=== PATIENT | female | born 1965 | race American Indian/Alaskan Native ===

== ENCOUNTER 2017-10-31 10:26 | Emergency (ER) | payer OTHER ==
[2017-10-31 10:33] VITALS: BMI 29.5
[2017-10-31 10:35] VITALS: BP 151/62; PULSE 60; RESP 20; TEMP 98.2; O2SAT 97
[2017-10-31] MEDS ORDERED: Oxycodone/Acetaminophen 5/325 mg Tab PO STA (11:21)
[2017-10-31] MEDS ORDERED: Oxycodone/Acetaminophen 5/325 mg Tab ONE (11:23)
--- NOTE | 2017-10-31 11:25 | ED PDOC ---
Upper Extremity Pain/Injury Time Seen by Provider: 10/31/17 10:36 Chief Complaint (Nursing): Finger,Hand,&Wrist History Per: Patient History/Exam Limitations: no limitations Onset/Duration Of Symptoms: Sudden Onset Current Symptoms Are (Timing): Still Present Severity: Moderate Hands/Wrist (Pic): 1 - Tenderness, Swelling, Pain Worse W/Movement Additional History Per: Patient Additional Complaint(s): Patient complaints of right hand pain s/p fall that occurred yesterday. Reports pain has since increased, prompting her visit. Swelling noted to right hand. Denies any numbness or tingling. Able to move fingers. No medication taken [employer]. Past Medical History Reviewed: Historical Data, Nursing Documentation, Vital Signs Vital Signs: Last Vital Signs Temp 98.2 F 10/31/17 10:34 Pulse 60 10/31/17 10:34 Resp 20 10/31/17 10:34 BP 151/62 H 10/31/17 10:34 Pulse Ox 97 10/31/17 10:34 - Medical History PMH: CHF, HTN - Family History Family History: States: Unknown Family Hx - Living Arrangements Living Arrangements: With Family - Social History Current smoker - smoking cessation education provided: No Alcohol: None - Home Medications Home Medications: Ambulatory Orders Medication Instructions Recorded LORazepam [Ativan] 1 mg PO Q12 PRN #2 tab 09/17/15 Ibuprofen [Motrin Tab] 600 mg PO QID PRN #60 tab 10/31/17 - Allergies Allergies/Adverse Reactions: Allergies Allergy/AdvReac Type Severity Reaction Status Date / Time No Known Allergies Allergy Verified 09/17/15 18:32 Review of Systems ROS Statement: Except As Marked, All Systems Reviewed And Found Negative Constitutional: Negative for: Fever, Chills Cardiovascular: Negative for: Chest Pain, Palpitations Respiratory: Negative for: Cough, Shortness of Breath Gastrointestinal: Negative for: Nausea, Vomiting, Abdominal Pain Musculoskeletal: Positive for: Hand Pain (right). Negative for: Leg Pain, Foot Pain Physical Exam - Reviewed Nursing Documentation Reviewed: Yes Vital Signs Reviewed: Yes - Physical Exam Appears: Positive for: Well Head Exam: Positive for: NORMAL INSPECTION, NORMOCEPHALIC Eye Exam: Positive for: Normal appearance, EOMI, PERRL Neck: Positive for: Normal, Painless ROM, Supple Cardiovascular/Chest: Positive for: Regular Rate, Rhythm, Chest Non Tender. Negative for: Edema, Gallop, Murmur, Bradycardia, Tachycardia Respiratory: Positive for: Normal Breath Sounds. Negative for: Decreased Breath Sounds, Accessory Muscle Use, Crackles, Rales, Rhonchi, Stridor, Wheezing , Respiratory Distress Pulses-Radial (L): 2+ Pulses-Radial (R): 2+ Gastrointestinal/Abdominal: Positive for: Normal Exam, Bowel Sounds, Soft. Negative for: Tenderness Back: Positive for: Normal Inspection. Negative for: L CVA Tenderness, R CVA Tenderness Extremity: Positive for: Normal ROM, Tenderness (tenderness and swelling at right mcp, finger nvi, nml rom of wrist, no snuff box tenderness). 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 Negative for: Motor/Sensory Deficits - ECG O2 Sat by Pulse Oximetry: 97 Pulse Ox Interpretation: Normal - Other Rad No standard instances X-Ray: Interpreted by Me X-Ray Interpretation: right hand and wrist 3 views no visible fx or dislocation , mild sts - Progress ED Course And Treament: placed in thumb spica splint on right advise close pmd or hand f/u. Re-evaluation Time: 12:00 Condition: Improving,but remains with symptoms Disposition - Clinical Impression Clinical Impression: Hand contusion - Patient ED Disposition Is Patient to be Admitted: No Counseled Patient/Family Regarding: Studies Performed, Diagnosis, Need For Followup - Disposition Referrals: Dayday Beckham MD [Medical Doctor] - (3 days) Disposition: Routine/Home Disposition Time: 12:00 Condition: GOOD Prescriptions: Ibuprofen [Motrin Tab] 600 mg PO QID PRN #60 tab PRN Reason: Pain, Moderate (4-7) Instructions: Wrist Injury (ED) Forms: [facility] [facility] (Telugu), [facility] ED School/Work Excuse
--- NOTE | 2017-10-31 14:19 | RAD ---
PROCEDURE: Right Hand Radiographs. HISTORY: trauma COMPARISON: None. FINDINGS: BONES: No acute fracture or destructive bony lesion identified. JOINTS: No dislocation is appreciated. Degenerative joint space narrowing is limited and articular cortical sclerosis appreciate throughout the interphalangeal joints diffusely as well as at the carpometacarpal articulations compatible osteoarthritis. SOFT TISSUES: Normal. OTHER FINDINGS: None. IMPRESSION: No acute fracture, subluxation or dislocation. Degenerative changes are seen at the right hand and wrist as discussed above.
--- NOTE | 2017-10-31 14:26 | RAD ---
PROCEDURE: Right Wrist Radiographs. HISTORY: trauma COMPARISON: None. FINDINGS: BONES: Normal. No fracture. JOINTS: No subluxation or dislocation is identified. Limited joint space narrowing at the carpometacarpal articulations may indicate an element of limited degenerative joint disease. SOFT TISSUES: Normal. OTHER FINDINGS: None. IMPRESSION: No fracture dislocation is identified in the right wrist. Limited degenerative changes are suggested at the carpal metacarpal joints diffusely.
== END 2017-10-31 13:16 | disposition home or self-care (01) ==
LOC: H.ER 10:26
DX: S60.221A Contusion of right hand, initial encounter (principal); I10 Essential (primary) hypertension; I50.9 Heart failure, unspecified; W19.XXXA Unspecified fall, initial encounter